=== PATIENT | female | born 1950 | race Caucasian/White ===

== ENCOUNTER 2022-04-15 15:52 | Inpatient (IN) | payer MEDICARE, OTHER ==
[~2022-04-15] VITALS: Ht 165.1 cm; Wt 64.0 kg
[2022-04-15 19:33] LABS: HEMOGLOBIN 11.7 gm/dl (12.3-15.3); RED BLOOD COUNT 3.81 M/UL (4.00-5.10)
[2022-04-15] MEDS ORDERED: HYDROCHLOROTHIA25 MG PO (19:48)
[2022-04-15] MEDS ORDERED: RANOLAZINE ER500 MG PO (19:49)
[2022-04-15] MEDS ORDERED: ISOSORBIDE MONO60 MG PO (19:54)
[2022-04-15] MEDS ORDERED: OMEPRAZOLE40 MG PO (19:54)
[2022-04-15] MEDS ORDERED: ATORVASTATIN CA40 MG PO (19:54)
[2022-04-15] MEDS ORDERED: LOSARTAN POTASS25 MG PO (19:54)
[2022-04-15] MEDS ORDERED: SERTRALINE HCL50 MG PO (19:55)
[2022-04-15] MEDS ORDERED: VOLTAREN EC 5050 MG PO (19:55)
[2022-04-15] MEDS ORDERED: TOPROL XL25 MG PO (19:57)
[2022-04-15] MEDS ORDERED: NITROSTAT 0.40.4 MG SL (19:57)
[2022-04-15] MEDS ORDERED: STOOL SOFTENER PO (19:57)
[2022-04-15] MEDS ORDERED: TYLENOL325 MG PO (19:58)
[2022-04-15] MEDS ORDERED: CLOPIDOGREL75 MG PO (21:32)
[2022-04-16 01:32] LABS: HEMOGLOBIN 11.6 gm/dl (12.3-15.3); RED BLOOD COUNT 3.75 M/UL (4.00-5.10); WHITE BLOOD COUNT 6.3 K/UL (4.5-11.0)
[2022-04-16] MEDS ORDERED: HYDROCODON-ACE1 EAC6 PO (11:05)
[2022-04-17 01:56] LABS: HEMOGLOBIN 11.5 gm/dl (12.3-15.3); RED BLOOD COUNT 3.74 M/UL (4.00-5.10)
[2022-04-17] MEDS ORDERED: ISOSORBIDE MONO60 MG PO (10:35)
[2022-04-17] MEDS ORDERED: RANEXA1000 MG PO (10:35)
[2022-04-17] MEDS ORDERED: CRESTOR40 MG PO (10:58)
[2022-04-17] MEDS ORDERED: ASPIRIN EC81 MG PO (11:01)
[2022-04-17] MEDS ORDERED: HYDRALAZINE HCL25 MG PO (11:02)
== END 2022-04-17 11:57 | disposition home or self-care (01) | DRG 282 ==
LOC: PROG CARE 18:28
PROVIDERS: ADMIT Internal Medicine
PROC: 4A023N7 Measurement of Cardiac Sampling and Pressure, Left Heart, Percutaneous Approach (ICD-10-PCS; principal; 2022-04-16)
PROC: B2111ZZ Fluoroscopy of Multiple Coronary Arteries using Low Osmolar Contrast (ICD-10-PCS; 2022-04-16)
PROC: B24BZZZ Ultrasonography of Heart with Aorta (ICD-10-PCS; 2022-04-16)
DX: I21.4 Non-ST elevation (NSTEMI) myocardial infarction (principal); I25.10 Atherosclerotic heart disease of native coronary artery without angina pectoris; K21.9 Gastro-esophageal reflux disease without esophagitis; I10 Essential (primary) hypertension; E78.5 Hyperlipidemia, unspecified; M54.9 Dorsalgia, unspecified; G56.03 Carpal tunnel syndrome, bilateral upper limbs; G89.29 Other chronic pain; M47.896 Other spondylosis, lumbar region; Z79.01 Long term (current) use of anticoagulants; Z79.82 Long term (current) use of aspirin; Z90.710 Acquired absence of both cervix and uterus; Z82.5 Family history of asthma and other chronic lower respiratory diseases; Z88.8 Allergy status to other drugs, medicaments and biological substances; Z82.49 Family history of ischemic heart disease and other diseases of the circulatory system
CPT/HCPCS: ECHO; 36415; 71045; 80053; 82550; 82553; 83605; 83880; 84484; 85025; 85610; 85730; 86140; 93005; 93306; 99152; C1769; C1887; C1894; J1644; J2250; J3010; J7040; Q9965